=== PATIENT | male | born 1995 | race Caucasian/White ===

== ENCOUNTER 2017-02-12 13:01 | Emergency (ER) | payer BC, OTHER ==
[~2017-02-12] VITALS: Ht 182.9 cm; Wt 85.7 kg
[~2017-02-12 13:01] MED LIST: ALBUAER2 INH
[2017-02-12 13:06] VITALS: TEMP 36.8; Ht 182.9 cm; Wt 85.7 kg
[2017-02-12] MEDS ORDERED: CITA20TA9 PO (13:51)
--- NOTE | 2017-02-12 15:33 | DIAGNOSTIC IMAGING REPORT ---
TESTICULAR ULTRASOUND HISTORY: Pain Right testicle pain COMPARISON: 12/26/2008 FINDINGS: Right testis: Maximum dimension 5.1 cm. Normal vascular flow Left testis: Maximum dimension 5.1 cm. Normal vascular flow IMPRESSION: Normal testicular ultrasound. Electronically signed by: James Calvillo M.D. 02/12/2017 3:31 PM Dictated Date/Time: 02/12/2017 3:31 PM
[2017-02-12] MEDS ORDERED: AZITHROMYCIN 250 MG TAB PO ONE (16:00)
[2017-02-12] MEDS ORDERED: CEFTRIAXONE SOD 350MG/ML 1 GM VIAL IM ONE (16:00)
[2017-02-12 16:28] VITALS: BP 119/69; PULSE 62; O2SAT 100
--- NOTE | 2017-02-12 18:39 | EMERGENCY ROOM VISIT NOTE ---
History First contact with patient: 13:10 Chief Complaint: TESTICULAR PAIN Stated Complaint: SWELLING IN GENITAL AREA-SENT BY [facility] Triage Summary: Patient c/o of right sided testicular swelling and pain x 2 days. Denies trauma or injury. History of Present Illness The patient is a 21 year old male who presents to the Emergency Room with complaints of pain along the posterior aspect of his right testicle slowly worsening over the past 2 days. The patient does not have a history of injury or trauma to explain his symptoms. He does not have dysuria or hematuria. No urethral drainage or discharge. The patient is sexually active, but does not have concern for distinct STDs. He does report an old history of chlamydial infection. The patient is without abdominal pain or flank pain. No fever or chills. No known trauma. He has never had similar symptoms in the past. He rates his discomfort a dull, persistent, 4/10. Review of Systems More than 10 systems were reviewed and otherwise negative with the exception of history of present illness. Past Medical/Surgical History No pertinent medical disease Social History Smoking Status: Never Smoker Housing Status: lives with family Current/Historical Medications Scheduled Citalopram Hydrobromide (Celexa), 20 MG PO DAILY Allergies Coded Allergies: No Known Allergies (Unverified Allergy, Mild, 08/29/08) Physical Exam Vital Signs Date Time Temp Pulse Resp B/P Pulse Ox O2 Delivery O2 Flow Rate FiO2 02/12/17 16:28 62 16 119/69 100 02/12/17 14:59 98 20 131/78 99 Room Air 02/12/17 13:06 36.8 87 20 124/76 96 Room Air Pain Rating (0-10): 3.0 Physical Exam VITALS: Vitals are noted on the nurse's note and reviewed by myself. Vital signs stable. GENERAL: Well-developed, well-nourished, white male, who is in no acute distress and resting comfortably. Patient is cooperative with the examination. HEAD: Normocephalic atraumatic. HEART: Regular rate and rhythm without murmurs gallops or rubs. LUNGS: Clear to auscultation bilaterally without wheezes, rales or rhonchi. No retractions or accessory muscle use. ABDOMEN: Positive normal bowel sounds x 4. Soft, nontender, without masses or organomegaly. No guarding or rebound tenderness. : Normal-appearing external male genitalia. No urethral drainage or discharge. Mild right posterior testicular tenderness appreciated without mass or lesion. No discoloration. Normal cremasteric reflex bilateral. No appreciable hernia or inguinal lymphadenopathy. MUSCULOSKELETAL: No muscle atrophy, erythema, or edema noted. Full range of motion without joint tenderness in all extremities. Medical Decision & Procedures ER Provider Diagnostic Interpretation: TESTICULAR ULTRASOUND HISTORY: Pain Right testicle pain COMPARISON: 12/26/2008 FINDINGS: Right testis: Maximum dimension 5.1 cm. Normal vascular flow Left testis: Maximum dimension 5.1 cm. Normal vascular flow IMPRESSION: Normal testicular ultrasound. Medications Administered Medications (Trade) Dose Ordered Sig/Sunshine Route Start Time Stop Time Status Last Admin Dose Admin Ceftriaxone Sodium (Rocephin Im) 1,000 mg NOW ONCE IM 02/12/17 16:00 02/12/17 16:01 DC 02/12/17 16:00 1,000 MG Azithromycin (Zithromax Tab) 1,000 mg NOW ONCE PO 02/12/17 16:00 02/12/17 16:01 DC 02/12/17 16:00 1,000 MG ED Course Physical exam and history were performed. Nursing notes and EMR were reviewed. Patient appears to have right testicle pain for the past 2 days. The patient does not appear toxic on exam. He does have some mild right testicular tenderness without other significant physical exam findings. Because of his discomfort ultrasound was performed, and does not show acute findings. I discussed options of care with the patient, and because he is sexually active I did elect to give him 1 g IM Rocephin and 1 g oral Zithromax. I recommended the patient follow with urology if his symptoms persist this week. He may otherwise use conservative measures at home. He was invited back to the ER anytime with any new, worsening, or concerning symptoms and voiced understanding of this plan. The chart was completed utilizing [employer] Voice Recognition Software. Grammatical errors, random word insertions, pronoun errors, and incomplete sentences are an occasional consequence of this system due to software limitations, ambient noise, and hardware issues. Any formal questions or concerns about the content, text, or information contained within the body of this dictation should be directly addressed to the provider for clarification. . Medical Decision Differential diagnosis: Etiologies such as torsion, mass, infection, hernia, hydrocele, epididymitis, trauma, intra-abdominal process, as well as others were entertained. Impression Primary Impression: Right testicular pain Departure Information Dispostion Home / Self-Care Condition GOOD Referrals Kan Zabala M.D. Forms HOME CARE DOCUMENTATION FORM, IMPORTANT VISIT INFORMATION Patient Instructions My [facility] Additional Instructions You were seen and evaluated today on an emergency basis only. This is not a substitute for, or an effort to provide, complete comprehensive medical care. It is not possible to recognize and treat all injuries or illnesses in a single emergency department visit. For this reason it is recommended that you followup with Urology, Dr. Zabala's office, if symptoms persist later this week. For baseline pain relief you may alternate ibuprofen and acetaminophen every 4 hours for pain control. Take 600 mg ibuprofen (Advil) and then 4 hours later take 1000 mg acetaminophen (Tylenol). Do not take more than 3000 mg acetaminophen in a single day. You are welcome to return to the emergency department anytime with new, worsening, or concerning symptoms.
== END 2017-02-12 16:38 | disposition home or self-care (01) ==
LOC: C.EDB 13:03 → C.EDD 16:38
DX: N50.811 Right testicular pain (principal); Z86.19 Personal history of other infectious and parasitic diseases